=== PATIENT | male | born 1980 | race Caucasian/White ===

== ENCOUNTER 2017-09-06 14:07 | Inpatient (IN) | payer OTHER, MEDICAID ==
[~2017-09-06] VITALS: Ht 177.8 cm; Wt 82.1 kg
[2017-09-06 14:20] VITALS: BP 86/51
--- NOTE | 2017-09-06 14:29 | NUR ---
PATIENT BIB [facility] WITH C/O ALOC D/T METH USE; PT NON-VERBAL ALL QUESTIONS ANSWERED BY [facility] AND PARENTS AT BEDSIDE; STASH OF METH GIVEN BY [facility] TO PD;HX SCHIZOPRENIA;RX OF AMIPRIPRAZOLE 15MG, DIVALPROEX 500MG; SKIN IS PINK/WARM/DRY;PT RESPONDS TO STIMULI;OPENS EYES BRIEFLY AND SMILES;LUNGS CLEAR BL; HR EVEN AND REGULAR; PATIENT POSITIONED FOR COMFORT; HOB ELEVATED; BEDRAILS UP X2; BED DOWN. O2 AT 2LPM VIA NC;ALL MONITORS IN PLACED;ER MD MADE AWARE OF PT STATUS.
--- NOTE | 2017-09-06 14:31 | NUR ---
Dr. Shaffer evaluating patient at bedside.
--- NOTE | 2017-09-06 14:35 | NUR ---
IVF NS 1L WAS ADMINISTERED.
--- NOTE | 2017-09-06 14:55 | NUR ---
SOFT RESTRAINT APPLIED;PT IS PULLING CUEVAS CATHETER;
[2017-09-06 14:58] LABS: BASOPHILS # (AUTO) 0.1 K/uL (0.00-0.22); BASOPHILS % (AUTO) 1.9 % (0.0-2.0); EOSINOPHILS # (AUTO) 0.1 K/uL (0-0.4); EOSINOPHILS % (AUTO) 1.1 % (0.0-4.0); HEMATOCRIT 45.1 % (36-52); LYMPHOCYTES % (AUTO) 18.4 % (20.5-51.1); MEAN CORPUSCULAR HEMOGLOBIN 30 pg (27-31); MEAN CORPUSCULAR HGB CONC 33 g/dL (33-37); MEAN CORPUSCULAR VOLUME 91 fL (80-94); MONOCYTES # (AUTO) 0.6 K/uL (0.8-1.0); MONOCYTES % (AUTO) 10.6 % (1.7-9.3); NEUTROPHILS # (AUTO) 3.7 K/uL (1.8-7.7); PLATELET COUNT (AUTO) 164 K/uL (140-450); RED BLOOD CELL COUNT(AUTO) 4.95 MIL/uL (4.20-6.10); RED CELL DISTRIBUTION WIDTH 12.8 % (11.6-13.7); WHITE BLOOD COUNT (AUTO) 5.5 K/uL (4.8-10.8)
[2017-09-06] MEDS ORDERED: NACL 0.9% 1,000 ML IV ONE (15:00)
[2017-09-06] MEDS ORDERED: DEXT 5% / LACT RING 1,000 ML IV ONE ×2 (15:00→18:35)
--- NOTE | 2017-09-06 15:02 | NUR ---
PT CAN'T BE TAKEN TO CT SCAN AT THJIS TIME;PT'S BP 85/52;WA 79;O2 SAT AT 100 % VIA NC.
[2017-09-06 15:11] LABS: ANION GAP 10.2 (8-16); CARBON DIOXIDE 29.9 mmol/L (21-32); CHLORIDE 106 mmol/L (98-107); CREATININE 1.4 mg/dL (0.7-1.3); GFR ARICAN-AMERICAN 73 mL/min (>90); GLUCOSE 96 mg/dL (74-106); POTASSIUM 4.1 mmol/L (3.5-5.1); SODIUM SERUM 142 mmol/L (136-145); UREA NITROGEN, BLOOD 18 mg/dL (7-18)
[2017-09-06 15:17] LABS: ALBUMIN 3.3 g/dL (3.4-5.0); ASPARTATE AMINOTRANSFERASE 13 U/L (15-37); TOTAL BILIRUBIN 0.9 mg/dL (0.0-1.0)
[2017-09-06 15:19] LABS: ACETAMINOPHEN < 0.5 ug/ml (10-30); SALICYLATE < 2.8 mg/dL (2.8-20.0)
[2017-09-06 15:24] LABS: APPEARANCE,URINE CLEAR (CLEAR); BILIRUBIN,URINE NEGATIVE (NEGATIVE); BLOOD, URINE TRACE-I (NEGATIVE); COLOR,URINE YELLOW (YELLOW); LEUKOCYTE ESTERASE ,URINE NEGATIVE (NEGATIVE); NITRITE, URINE NEGATIVE (NEGATIVE); PH,URINE 6.5 (5.0-9.0); UGLUCOSE NEGATIVE (NEGATIVE)
[2017-09-06 15:31] LABS: BARBITURATE, URINE NEG. ng/ml (NEG <=200); BENZODIAZEPINE, URINE NEG. ng/mL (NEG <=200); CANNABINOID, URINE NEG. ng/mL (NEG <=50); COCAINE, URINE NEG. ng/mL (NEG <=300); OPIATE, URINE NEG. ng/mL (NEG <=2000); PHENCYCLIDINE SCREEN,URINE NEG. ng/mL (NEG <=25)
[2017-09-06 15:38] LABS: RBC,URINE 3-10 (FEW) /HPF (0-5); WBC,URINE 0-5 (RARE) /HPF (0-5)
--- NOTE | 2017-09-06 15:40 | NUR ---
PER MOTHER PT DON'T REALLY TALKED TO MUCH.
--- NOTE | 2017-09-06 15:55 | NUR ---
WENT TO CT SCAN ACCOMPANIED BY TECH.
--- NOTE | 2017-09-06 16:46 | NUR ---
VERBAL ORDER OF D5 LR;
--- NOTE | 2017-09-06 16:47 | NUR ---
PT STILL SLEEPING;BUT AROUSABLE;
--- NOTE | 2017-09-06 17:10 | NUR ---
pt woke up;asked pt what happened;Pt states "i smoked cigarrete";then pt went back to sleep;will contiue to monitor pt;
[2017-09-06] MEDS ORDERED: LACTATED RINGERS 1,000 ML IV ONE ×2 (17:25→18:25)
--- NOTE | 2017-09-06 17:40 | NUR ---
pt cannot be transfered to his room yet;bp of 88/50;er md aware;will give more fluids;will ontinue to monitor pt.
--- NOTE | 2017-09-06 17:45 | NUR ---
DR DORSEY AT BEDSIDE;INFORMED ER BP OF PT;88/50;DR DORSEY SAID WILL GIVE MORE FLUIDS;
--- NOTE | 2017-09-06 17:55 | NUR ---
PARENTS AT BEDSIDE;PTVATLKING TO HIS PARENTS;
--- NOTE | 2017-09-06 18:20 | NUR ---
PER MOTHER PT;IS NOT TAKING HIS PSYCH MEDICATION;
--- NOTE | 2017-09-06 18:21 | NUR ---
Patient will be admitted to care of DR CAI. Admited to TELE. Will go to [id number]. Belongings list completed. Report to CLAIRE RICHTER.
[2017-09-06] MEDS ORDERED: DIVA500T1 PO (18:28)
[2017-09-06] MEDS ORDERED: ACETAMINOPHEN 325 MG TAB PO PRN (18:30)
[2017-09-06] MEDS ORDERED: HYDROcodone/APAP 7.5/325 MG 1 TAB PO PRN (18:30)
[2017-09-06] MEDS ORDERED: ONDANSETRON 4 MG/2 ML VIAL IVP PRN (18:30)
--- NOTE | 2017-09-06 18:35 | NUR ---
PT ARRIVED FROM ER IN [facility], REPORT RECEIVED FROM ABBEY RANGEL, PT SLEEPY BUT AROUSES EASILY TO VOICE, OX3, RESP EVEN UNLABORED ON 1L NC, SKIN WARM DRY COLOR WNL, SKIN INTACT, IV TO RIGHT AC, 20G, SITE CLEAR, CUEVAS DRAINING TO GRAVITY, VITALS TAKEN, MRSA SENT, INITAL ASSESSMENT DONE, PT ORIENTED TO ROOM AND FLOOR, PLAN OF CARE DISCUSSED, WILL CONTINUE TO MONITOR. Addendum: 09/06/17 at 1940 by Jennifer Forbes RN PT PLACED ON NUCLEAR PLANT EQUIPMENT OPERATOR, SOFT WRIST RESTRAINTS REMOVED UPON ARRIVAL TO [facility], PT COOPERATIVE, VERBALIZES UNDERSTANDING NOT TO PULL OUT DEEPALI.
[2017-09-06 18:40] VITALS: BP 77/48
--- NOTE | 2017-09-06 18:45 | NUR ---
CUEVAS REMOVED PER MD ORDER, PT MICHELLE WELL, 800ML DARK YELLOW URINE DRAINED, CATH TIP INTACT.
--- NOTE | 2017-09-06 18:45 | NUR ---
BP 77/48, HR 50, PT AROUSES EASILY, RESPONDS TO QUIESTIONS APPROPRIATELY, MD MADE AWARE, VERBAL ORDER RECEIVED FROM DR CORCORAN TO GIVE 1000ML BOLUS X1 STARTED.
[2017-09-06 18:50] VITALS: BP 81/50
[2017-09-06] MEDS ORDERED: ARIP20TA5 PO (19:19)
[2017-09-06] MEDS ORDERED: QUET100T44 PO (19:19)
[2017-09-06] MEDS ORDERED: DIVA500T17 PO (19:19)
[2017-09-06] MEDS ORDERED: TRAZ-289 PO (19:19)
--- NOTE | 2017-09-06 19:28 | NUR ---
REPORT GIVEN TO DRIVER RETRAINING INSTRUCTOR NURSE, PT IN STABLE CONDITION, BP NOW 100/50.
--- NOTE | 2017-09-06 19:29 | NUR ---
RECEIVED PATIENT REPORT AT BEDSIDE FROM MORNING NURSE. PATIENT IS ASLEEP, BUT EASY TO AWAKEN BY VOICE. NO SIGNS AND SYMPTOMS OF DISTRESS NOTED, NO COMPLAINTS OF PAIN AT THIS TIME. PATIENT ON O2 1L VIA NC. IV SITE NOTED ON RIGHT AC NOTED, IVF INFUSING WELL. BED IN LOWEST POSITION, LEGS ELEVATED. SEIZURE AND SAFETY PRECAUTIONS PUT IN PLACE. WILL CONTINUE TO MONITOR.
[2017-09-06 20:00] VITALS: BP 100/73
[2017-09-06] MEDS ORDERED: LORazepam 1 MG TAB PO PRN (20:00)
[2017-09-06] MEDS: NACL 0.9% 1,000 ML IV SCH (20:11)
[2017-09-06] MEDS: QUEtiapine FUMARATE 100 MG TAB PO SCH (20:20)
[2017-09-06] MEDS: DOCUSATE SODIUM 100 MG GELCAP PO SCH (20:20)
[2017-09-06 20:59] LABS: PROTHROMBIN TIME 12.9 secs (10.8-13.4)
[2017-09-06] MEDS ORDERED: traZODone 50 MG TAB PO SCH (21:00)
[2017-09-06] MEDS ORDERED: DIVALPROEX 500 MG TABEC PO SCH (21:00)
[2017-09-06 21:16] LABS: FREE T4 (FREE THYROXINE) 0.91 ng/dL (0.76-1.46); PHOSPHORUS 3.7 mg/dL (2.5-4.9); THYROID STIMULATING HORMONE 0.57 uIU/mL (0.34-3.74)
--- NOTE | 2017-09-06 22:00 | NUR ---
CHECKED ON PATIENT. PATIENT IS ASLEEP. NO SIGNS AND SYMPTOMS OF DISTRESS NOTED. BREATHING EVEN AND UNLABORED. BED IN LOWEST POSITION, SIDE RAILS UP AND CALL LIGHT WITHIN REACH. WILL CONTINUE TO MONITOR.
[2017-09-07] VITALS: BP 111/37
[2017-09-07] MEDS: NACL 0.9% 1,000 ML IV SCH ×3 (01:53→15:54)
[2017-09-07 04:00] VITALS: BP 92/60
[2017-09-07 06:22] LABS: BASOPHILS # (AUTO) 0.2 K/uL (0.00-0.22); EOSINOPHILS # (AUTO) 0.1 K/uL (0-0.4); EOSINOPHILS % (AUTO) 2.3 % (0.0-4.0); HEMATOCRIT 39.1 % (36-52); HEMOGLOBIN 12.8 g/dL (12.0-18.0); LYMPHOCYTES # (AUTO) 1.3 K/uL (2.0-11.5); LYMPHOCYTES % (AUTO) 25.3 % (20.5-51.1); MEAN CORPUSCULAR HEMOGLOBIN 30 pg (27-31); MEAN CORPUSCULAR HGB CONC 33 g/dL (33-37); MEAN CORPUSCULAR VOLUME 92 fL (80-94); MONOCYTES # (AUTO) 0.7 K/uL (0.8-1.0); MONOCYTES % (AUTO) 14.1 % (1.7-9.3); NEUTROPHILS % (AUTO) 54.3 % (42.2-75.2); PLATELET COUNT (AUTO) 145 K/uL (140-450); RED BLOOD CELL COUNT(AUTO) 4.24 MIL/uL (4.20-6.10); RED CELL DISTRIBUTION WIDTH 13.1 % (11.6-13.7); WHITE BLOOD COUNT (AUTO) 5.3 K/uL (4.8-10.8)
[2017-09-07 06:37] LABS: ANION GAP 7.1 (8-16); CARBON DIOXIDE 30.5 mmol/L (21-32); CREATININE 0.9 mg/dL (0.7-1.3); POTASSIUM 4.6 mmol/L (3.5-5.1)
--- NOTE | 2017-09-07 07:31 | NUR ---
PATIENT REPORT GIVEN TO MORNING NURSE AT BEDSIDE. PATIENT IS IN STABLE CONDITION.
--- NOTE | 2017-09-07 07:40 | NUR ---
RECEIVED REPORT FROM POWER ENGINEER NURSE, PT IS SLEEPING IN BED BUT EASILY AWAKEN, PT IS A/OX3, BEDREST, SKIN IS INTACT, IV IS ON THE RIGHT AC, PATENT, INTACT, FLUSHING WELL, NO S/S OF RESPIRATORY DISTRESS OR DISCOMFORT NOTED, DISCUSSED PLAN OF CARE WITH PT, PT VERBALIZED UNDERSTANDING, SAFETY/FALL PRECAUTIONS ARE IN PLACE, CALL LIGHT IS WITHIN REACH, WILL CONTINUE TO MONITOR.
[2017-09-07 08:00] VITALS: BP 113/61
[2017-09-07] MEDS: DOCUSATE SODIUM 100 MG GELCAP PO SCH (08:58)
[2017-09-07] MEDS: QUEtiapine FUMARATE 100 MG TAB PO SCH (08:58)
[2017-09-07] MEDS ORDERED: ARIPiprazole 10 MG TAB PO SCH (09:00)
[2017-09-07] MEDS ORDERED: DIVALPROEX 500 MG TABER PO SCH ×2 (09:00)
--- NOTE | 2017-09-07 09:15 | NUR ---
ASSISTED PATIENT TO RESTROOM AND BACK INTO BED. PT IS UNSTEADY ON HIS FEET AT THIS TIME. BED ALARM ON, ADVISED PT TO CALL IF HE NEEDED ANYTHING, CALL LIGHT IS WITHIN REACH.
--- NOTE | 2017-09-07 10:13 | NUR ---
PATIENT HAS BEEN SCREENED AND CATEGORIZED LOW NUTRITION RISK. PATIENT WILL BE SEEN WITHIN 7 DAYS OF ADMISSION. 09/13/[address]
[2017-09-07 12:00] VITALS: BP 112/72
--- NOTE | 2017-09-07 13:09 | NUR ---
PT IS SLEEPING IN BED AT THIS TIME, CALL LIGHT IS WITHIN REACH.
--- NOTE | 2017-09-07 15:54 | NUR ---
PT SLEEPING IN BED AT THIS TIME, CALL LIGHT IS WITHIN REACH.
[2017-09-07 16:00] VITALS: BP 98/63
--- NOTE | 2017-09-07 19:15 | NUR ---
ENDORSED PT TO SILK FINISHER NURSE FOR CONTINUITY OF CARE, PT STABLE AT THIS TIME.
--- NOTE | 2017-09-07 19:20 | NUR ---
RECEIVED FROM AM RN IN THE HALLWAY WALKING AND WANTING TO GO HOME. "I WANT TO GO HOME" A/O X 4. ROM X 4. CLEAR SPEECH.ENCOURAGED TO WAIT A LITTLE WHILE SO WE CAN CALL AND INFORM MD THAT HE WANTS TO GO HOME. AGREED. REFUSING TO STAY INSIDE ROOM. "I WANT TO WALK". TELEMETRY MONITORING.
--- NOTE | 2017-09-07 19:30 | NUR ---
PT. WALKED OUT OF FACILITY . NO BELONGINGS LEFT BEHIND. INFORMED CHARGE NURSE. STAND GRINDER INFORMED.IVF DISCONTINUED WITH TIP INTACT. TOLERATED WELL. Addendum: 09/08/17 at 0726 by Mone Lynn RN PT. LEFT 20:40 . ERROR TIME ABOVE.
--- NOTE | 2017-09-07 20:35 | NUR ---
PT. SIGNED AMA FORM AND REFUSES TO STAY. A/O X 4. ROM X 4. CLEAR SPEECH. NO SOB. DENIES ANY PAIN. VERBALIZES WELL. MD CRAY FISHING HAND AWARE AND SAID "OK" . CHARGE NURSE TALKED TO MD. CRAY FISHING HAND. IVF SITE DISCONTINUED WITH TIP INTACT. NAME BAND TAKEN OUT.
== END 2017-09-07 20:45 | disposition left against medical advice (07) | DRG 917 ==
LOC: MED 14:07 → MTU 17:01
PROVIDERS: ADMIT Student in an Organized Health Care Education/Training Program; ATTEND Student in an Organized Health Care Education/Training Program
DX: T43.624A Poisoning by amphetamines, undetermined, initial encounter (principal); G92 Toxic encephalopathy; N17.0 Acute kidney failure with tubular necrosis; E44.1 Mild protein-calorie malnutrition; Y65.8 Other specified misadventures during surgical and medical care; F19.10 Other psychoactive substance abuse, uncomplicated; F20.9 Schizophrenia, unspecified; T83.098A Other mechanical complication of other urinary catheter, initial encounter; F17.210 Nicotine dependence, cigarettes, uncomplicated; Y92.89 Other specified places as the place of occurrence of the external cause; Z68.26 Body mass index [BMI] 26.0-26.9, adult; Z91.14 Patient's other noncompliance with medication regimen
CPT/HCPCS: 36415; 70450; 71010; 80048; 80053; 80305; 81001; 82140; 82150; 82550; 82948; 83036; 83690; 83735; 83880; 84100; 84439; 84443; 84484; 85025; 85610; 85730; 87081; 93005; 96360; 96361; 99285; G0480; G0482; J7030; J7120; Q0092

== ENCOUNTER 2017-09-10 19:44 | Emergency (ER) | payer OTHER, MEDICAID ==
[~2017-09-10] VITALS: Ht 180.3 cm; Wt 77.1 kg
[~2017-09-10 19:44] MED LIST: ARIP20TA5 PO; DIVA500T1 PO; DIVA500T17 PO; QUET100T44 PO; TRAZ-289 PO
--- NOTE | 2017-09-10 19:44 | NUR ---
1938- Pt placed in bed by EMS.
--- NOTE | 2017-09-10 19:47 | NUR ---
Patient being evaluated by Dr. Ray at bedside.
[2017-09-10 19:48] VITALS: BP 128/94
[2017-09-10] MEDS ORDERED: ACTIVATED CHARCOAL 50 GM/240 ML TUBE PO ONE (19:55)
[2017-09-10] MEDS ORDERED: NACL 0.9% 1,000 ML IV ONE (19:55)
--- NOTE | 2017-09-10 20:00 | NUR ---
37Y/ M BIBA S/P TAKING 50 ADVIL PM PILLS. HX SCHIZOPHRENIA, NKA. PER EMS PT WAS FOUND BY FAMILY DOWN IN BATHROOM, SOILED HIMSELF, W/"PILLS". PT STATES HE TOOK PILLS BECAUSE HE DID NOT SLEEP FOR TWO DAYS, AND WAS HAVING A HEADACHE. PT DENIES DRUG AND ALCOHOL USE. PT IS AWAKE AND ALERT. PT DOES NOT STATE HIS NAME, PT HAS MUMBLED SPEECH, POOR EYE CONTACT, IS ANXIOUS BUT COOPERATIVE, SPEECH IS NOT APPROPRIATE AT THIS TIME. PT IN BED SIDE RAILS UP X2. WILL CONTINUE TO MONITOR. ER MD AWARE OF PT STATUS.
--- NOTE | 2017-09-10 20:00 | NUR ---
REPORTED TO POISON CONTROL AND SPOKEN TO KEVON AND ADVISED TO PUT ON ROLL COVERER IF QRS GREATER 120 TO GIVE 2 AMP OF SODUIM BICARBONATE, TO CALL BACK ONCE LAB RESULTS ARE BACK, ORDERED BY SHIRA.
[2017-09-10] MEDS ORDERED: ACTIVATED CHARCOAL W/SORBITOL 50 GM/240 ML TUBE ONE (20:05)
--- NOTE | 2017-09-10 20:05 | NUR ---
[place] [employer] at bedside.
[2017-09-10 20:24] LABS: BASOPHILS # (AUTO) 0.2 K/uL (0.00-0.22); BASOPHILS % (AUTO) 1.9 % (0.0-2.0); EOSINOPHILS # (AUTO) 0.1 K/uL (0-0.4); EOSINOPHILS % (AUTO) 0.7 % (0.0-4.0); HEMATOCRIT 47.5 % (36-52); HEMOGLOBIN 15.6 g/dL (12.0-18.0); LYMPHOCYTES # (AUTO) 1.4 K/uL (2.0-11.5); LYMPHOCYTES % (AUTO) 13.1 % (20.5-51.1); MEAN CORPUSCULAR HEMOGLOBIN 30 pg (27-31); MEAN CORPUSCULAR HGB CONC 33 g/dL (33-37); MEAN CORPUSCULAR VOLUME 90 fL (80-94); MONOCYTES % (AUTO) 9.8 % (1.7-9.3); NEUTROPHILS % (AUTO) 74.5 % (42.2-75.2); PLATELET COUNT (AUTO) 171 K/uL (140-450); RED BLOOD CELL COUNT(AUTO) 5.28 MIL/uL (4.20-6.10); WHITE BLOOD COUNT (AUTO) 10.7 K/uL (4.8-10.8)
--- NOTE | 2017-09-10 20:26 | NUR ---
POISON CONTROL CALLED BACK AND RECOMMENDED CHEMISTRY PANEL NOW AND REPEAT IN 4-6 HOURS FOR THE ADVIL COMPONENT; FOR RENAL DYSFUNCTION AND ACIDOSIS. DR. CHEUNG MADE AWARE.
[2017-09-10 20:31] LABS: APPEARANCE,URINE CLEAR (CLEAR); BILIRUBIN,URINE NEGATIVE (NEGATIVE); BLOOD, URINE NEGATIVE (NEGATIVE); COLOR,URINE YELLOW (YELLOW); LEUKOCYTE ESTERASE ,URINE NEGATIVE (NEGATIVE); NITRITE, URINE NEGATIVE (NEGATIVE); UGLUCOSE NEGATIVE (NEGATIVE)
[2017-09-10 20:33] LABS: BARBITURATE, URINE NEG. ng/ml (NEG <=200); BENZODIAZEPINE, URINE NEG. ng/mL (NEG <=200); CANNABINOID, URINE NEG. ng/mL (NEG <=50); CARBON DIOXIDE 30.6 mmol/L (21-32); CHLORIDE 104 mmol/L (98-107); COCAINE, URINE NEG. ng/mL (NEG <=300); CREATININE 1.3 mg/dL (0.7-1.3); GFR ARICAN-AMERICAN 80 mL/min (>90); GLUCOSE 94 mg/dL (74-106); OPIATE, URINE NEG. ng/mL (NEG <=2000); PHENCYCLIDINE SCREEN,URINE NEG. ng/mL (NEG <=25); POTASSIUM 3.6 mmol/L (3.5-5.1); SODIUM SERUM 139 mmol/L (136-145); UREA NITROGEN, BLOOD 17 mg/dL (7-18)
[2017-09-10 20:40] LABS: ACETAMINOPHEN < 0.5 ug/ml (10-30); ALBUMIN 3.7 g/dL (3.4-5.0); ASPARTATE AMINOTRANSFERASE 51 U/L (15-37); SALICYLATE < 2.8 mg/dL (2.8-20.0); TOTAL BILIRUBIN 0.9 mg/dL (0.0-1.0)
--- NOTE | 2017-09-10 21:00 | NUR ---
PT IN BED, COOPERATIVE, WILL CONTINUE TO MONITOR.
--- NOTE | 2017-09-10 22:40 | NUR ---
PT IN BED COOPERATIVE, SPEECH IS CLEAR, PT IS ANSWERING QUESTIONS APPROPRIATELY, WILL CONTINUE TO MONITOR.
[2017-09-11 00:16] VITALS: BP 136/86
--- NOTE | 2017-09-11 00:18 | NUR ---
Patient to be transferred to [facility]. Is being transferred due to [id number] hold. Receiving facility has accepting physician and available space. ER physician has signed transfer form. Patient or responsible republican has agreed to transfer and signed form. Patient belongings inventoried and will be sent with patient. Copy of nursing notes, lab reports, EKG, Physicians Orders and X-rays to be sent with patient. Report called to receiving facility. [facility] ambulance service has been called for transfer.
== END 2017-09-11 00:16 | disposition designated cancer center or children's hospital (05) ==
LOC: MED 19:44
DX: T45.0X2A Poisoning by antiallergic and antiemetic drugs, intentional self-harm, initial encounter (principal); F15.10 Other stimulant abuse, uncomplicated; Y92.89 Other specified places as the place of occurrence of the external cause
CPT/HCPCS: 36415; 80053; 80305; 81003; 85025; 93005; 96360; 96361; 99285; G0480; G0482; J7030